=== PATIENT | female | born 1960 | race Two or more races ===

== ENCOUNTER 2020-02-28 04:57 | Emergency (ER) | payer SELFPAY ==
[2020-02-28] MEDS ORDERED: MECLIZINE HCL 25 MG TABLET PO ONE (08:26)
[2020-02-28] MEDS ORDERED: CEPHALEXIN 500 MG CAPSULE PO ONE (08:37)
[2020-02-28] MEDS ORDERED: DIPH/PERTUSS(ACELL)/TETANUS VAC/PF 0.5 ML SYR (>=10YO) IM ONE (08:37)
--- NOTE | 2020-02-28 08:37 | ER Document Report ---
ED Dizziness/Weakness - General Chief Complaint: Dizziness Stated Complaint: DIZZYNESS Time Seen by Provider: 02/28/20 08:25 Mode of Arrival: Ambulatory Information source: Patient Notes: 02/28/20 05:25 - ED Nursing Note by LITZY RODARTE Num: [id number] : 1960 Patient Age: 59 pt has had dizziness for 2 days. pt had vertigo many yrs ago and she feels the same way. states she now is getting dizzy even when she walks. Initialized on 02/28/20 05:25 - END OF NOTE MY NOTES 59-year-old female arrives with her with chief complaint of mild cough for the last month or 2 status post COVID-19 asymptomatic otherwise. She tested positive late October. Patient has had for last 2 days spinning when she moves her head to the side or up and down. She also reports she has had some rhinorrhea and nasal congestion. She denies any nuchal rigidity fever chills . She denies any skin lesions or taste sensations. She did advise she got bitten accidentally by her on her right pinky finger radial side. She hope she can get a tetanus shot for this. Patient reports she had vertigo labyrinthitis over 20 years ago and was treated with meclizine and Phenergan. She denies any prior history of strokes or NM. - Related Data Allergies/Adverse Reactions: codeine Allergy (Verified 02/28/20 06:01) Home Medications: zinc, vitamin D, Past Medical History - General Information source: Patient - Social History Smoking Status: Never Smoker Cigarette use (# per day): No Chew tobacco use (# tins/day): No Smoking Education Provided: No Frequency of alcohol use: None Drug Abuse: None Lives with: Family Family History: Reviewed & Not Pertinent Patient has suicidal ideation: No Patient has homicidal ideation: No Review of Systems - Review of Systems Constitutional: See HPI, Recent illness EENT: See HPI, Nose congestion, Nose discharge Cardiovascular: No symptoms reported Respiratory: No symptoms reported Gastrointestinal: See HPI, Nausea Genitourinary: No symptoms reported Female Genitourinary: No symptoms reported Musculoskeletal: No symptoms reported Skin: See HPI, Other - Healing bite human on radial side of PIP of fifth phalange right sided hand Hematologic/Lymphatic: No symptoms reported Neurological/Psychological: See HPI, Other - Dizziness with nausea -: Yes All other systems reviewed and negative Physical Exam - Vital signs Vitals: Temp Pulse Resp BP Pulse Ox 98.0 F 73 20 137/77 H 97 02/28/20 05:04 02/28/20 05:04 02/28/20 05:04 02/28/20 05:04 02/28/20 05:04 Interpretation: Normal - General General appearance: Appears well, Alert - HEENT Head: Normocephalic, Atraumatic Eyes: Normal Pupils: PERRL - Respiratory Respiratory status: No respiratory distress Chest status: Nontender Breath sounds: Normal Chest palpation: Normal - Cardiovascular Rhythm: Regular Heart sounds: Normal auscultation Murmur: No - Abdominal Inspection: Normal Distension: No distension Bowel sounds: Normal Tenderness: Nontender Organomegaly: No organomegaly - Back Back: Normal, Nontender - Extremities General upper extremity: Normal inspection, Nontender, Normal color, Normal ROM, Normal temperature General lower extremity: Normal inspection, Nontender, Normal color, Normal ROM, Normal temperature, Normal weight bearing. No: Ravi's sign - Neurological Neuro grossly intact: Yes Cognition: Normal Orientation: AAOx4 Yohannes Coma Scale Eye Opening: Spontaneous Yohannes Coma Scale Verbal: Oriented Yohannes Coma Scale Motor: Obeys Commands Lohman Coma Scale Total: 15 Speech: Normal Motor strength normal: LUE, RUE, LLE, RLE Sensory: Normal Notes: Positive for Baraney test - Psychological Associated symptoms: Normal affect, Normal mood - Skin Skin Temperature: Warm Skin Moisture: Dry Skin Color: Normal Course - Vital Signs Vital signs: Temp Pulse Resp BP Pulse Ox 98.0 F 73 20 137/77 H 97 02/28/20 05:04 02/28/20 09:21 02/28/20 09:21 02/28/20 09:21 02/28/20 09:21 - Laboratory Results Result Diagrams: 02/28/20 08:41 02/28/20 08:41 Laboratory Results Interpreted: 02/28/20 08:41 Hct 35.1 L Critical Laboratory Results Reviewed: Yes Attending or Supervising Physician who Reviewed Labs: PARESH LESTER JR - Radiology Results Critical Radiology Results Reviewed: Yes Attending or Supervising Physician who Reviewed Radiology: PARESH LESTER JR Discharge - Discharge Clinical Impression: Vertigo Condition: Stable Disposition: HOME, SELF-CARE Instructions: Meclizine ([facility]), Antinausea Medication ([facility]) Additional Instructions: Follow-up with personal doctor this week return to ER as needed take medicines as directed encourage fluids. Take your meclizine for dizziness and Phenergan for nausea and Keflex for your bite and sinuses Prescriptions: Meclizine HCl [Antivert 25 mg Tablet] 25 mg PO TID PRN #21 tablet PRN Reason: Cephalexin Monohydrate [Keflex 500 mg Capsule] 500 mg PO TID 10 Days #30 capsule Promethazine HCl [Phenergan 25 mg Tablet] 1 - 2 tab PO Q6H PRN #15 tablet PRN Reason:
[2020-02-28] MEDS ORDERED: PROMETHAZINE HCL 25 MG TABLET PO ONE (08:42)
--- NOTE | 2020-02-28 08:49 | RADIOLOGY REPORT (SQ) ---
EXAM DESCRIPTION: CHEST SINGLE VIEW IMAGES COMPLETED DATE/TIME: 02/28/2020 8:37 am REASON FOR STUDY: dizzy COMPARISON: None. EXAM PARAMETERS: NUMBER OF VIEWS: One view. TECHNIQUE: Single frontal radiographic view of the chest acquired. RADIATION DOSE: NA LIMITATIONS: None. FINDINGS: LUNGS AND PLEURA: No opacities, masses or pneumothorax. No pleural effusion. MEDIASTINUM AND HILAR STRUCTURES: No masses. Contour normal. HEART AND VASCULAR STRUCTURES: Heart normal in size. Normal vasculature. BONES: No acute findings. HARDWARE: None in the chest. OTHER: No other significant finding. IMPRESSION: NO ACUTE RADIOGRAPHIC FINDING IN THE CHEST. TECHNICAL DOCUMENTATION: JOB ID: [id number] 2010 [employer]- All Rights Reserved Reading location - IP/workstation name: [email or web address]
[2020-02-28 09:14] LABS: ABSOLUTE BASOPHILS # (AUTO) 0.1 10^3/uL (0.0-0.2); ABSOLUTE EOSINOPHILS # (AUTO) 0.1 10^3/uL (0.0-0.6); ABSOLUTE LYMPHOCYTES (AUTO) 1.6 10^3/uL (0.5-4.7); ABSOLUTE MONOCYTES (AUTO) 0.5 10^3/uL (0.1-1.4); ABSOLUTE NEUT (AUTO) 3.9 10^3/uL (1.7-8.2); EOSINOPHILS % (AUTO) 1.9 % (0-6); HEMATOCRIT 35.1 % (36.0-47.0); HEMOGLOBIN 12.1 g/dL (12.0-15.5); LYMPHOCYTES % (AUTO) 25.5 % (13-45); MEAN CORPUSCULAR HEMOGLOBIN 30.2 pg (27.0-33.4); MEAN CORPUSCULAR HGB CONC 34.4 g/dL (32.0-36.0); MEAN CORPUSCULAR VOLUME 88 fl (80-97); MONOCYTES % (AUTO) 7.4 % (3-13); PLATELET COUNT 361 10^3/uL (150-450); RED BLOOD COUNT 3.99 10^6/uL (3.72-5.28); RED CELL DISTRIBUTION WIDTH 13.5 % (11.5-14.0); SEGMENTED NEUTROPHILS % (AUTO) 64.2 % (42-78); TOTAL CELLS COUNTED % (AUTO) 100 %; WHITE BLOOD COUNT 6.1 10^3/uL (4.0-10.5)
[2020-02-28 09:27] LABS: ALBUMIN 4.2 g/dL (3.5-5.0); ALKALINE PHOSPHATASE 113 U/L (38-126); ANION GAP 10 (5-19); ASPARTATE AMINO TRANSFERASE 26 U/L (14-36); BILIRUBIN,DIRECT 0.1 mg/dL (0.0-0.4); BILIRUBIN,TOTAL 0.6 mg/dL (0.2-1.3); BLOOD UREA NITROGEN 9 mg/dL (7-20); CALCIUM 9.7 mg/dL (8.4-10.2); CARBON DIOXIDE 27 mmol/L (22-30); CHLORIDE 105 mmol/L (98-107); GLUCOSE 98 mg/dL (75-110); POTASSIUM 4.1 mmol/L (3.6-5.0); TOTAL PROTEIN 8.1 g/dL (6.3-8.2)
--- NOTE | 2020-02-28 10:11 | RADIOLOGY REPORT (SQ) ---
EXAM DESCRIPTION: CT HEAD WITHOUT IMAGES COMPLETED DATE/TIME: 02/28/2020 10:02 am REASON FOR STUDY: dizzy COMPARISON: None. TECHNIQUE: Axial images acquired through the brain without intravenous contrast. Images reviewed wi th bone, brain and subdural windows. Images stored on PACS. All CT scanners at this facility use dose modulation, iterative reconstruction, and/or weight based d osing when appropriate to reduce radiation dose to as low as reasonably achievable (ALARA). [facility]: Dose Right [facility]: CareDose [facility]: Dose Right [facility]: Teradose 4D [facility]: Smart RealD RADIATION DOSE: CT Rad equipment meets quality standard of care and radiation dose reduction techniq ues were employed. CTDIvol: 53.2 mGy. DLP: 1070 mGy-cm. mGy. LIMITATIONS: None. FINDINGS: VENTRICLES: Normal size and contour. CEREBRUM: No masses. No hemorrhage. No midline shift. No evidence for acute infarction. Normal gra y/white matter differentiation. No areas of low density in the white matter. CEREBELLUM: No masses. No hemorrhage. No alteration of density. No evidence for acute infarction. EXTRAAXIAL SPACES: No fluid collections. No masses. ORBITS AND GLOBE: No intra- or extraconal masses. Normal contour of globe without masses. CALVARIUM: No fracture. PARANASAL SINUSES: No fluid or mucosal thickening. SOFT TISSUES: No mass or hematoma. OTHER: No other significant finding. IMPRESSION: NORMAL BRAIN CT WITHOUT CONTRAST. EVIDENCE OF ACUTE STROKE: NO. COMMENT: Quality ID # [id number]: Final reports with documentation of one or more dose reduction techniques (e.g., Automated exposure control, adjustment of the mA and/or kV according to patient size, use of iterative reconstruction technique) TECHNICAL DOCUMENTATION: JOB ID: [id number] [employer]- All Rights Reserved Reading location - IP/workstation name: [email or web address]
[2020-02-28 10:27] LABS: APPEARANCE,URINE CLEAR; BILIRUBIN,URINE NEGATIVE (NEGATIVE); COLOR,URINE STRAW; GLUCOSE, URINE NEGATIVE (NEGATIVE); KETONES,URINE NEGATIVE (NEGATIVE); LEUKOCYTE ESTERASE,URINE NEGATIVE (NEGATIVE); NITRITE,URINE NEGATIVE (NEGATIVE); PROTEIN,URINE NEGATIVE (NEGATIVE); URINE SPECIFIC GRAVITY 1.006; UROBILINOGEN,URINE NEGATIVE mg/dL (<2.0)
[2020-02-28 11:02] VITALS: BP 131/77
== END 2020-02-28 11:11 | disposition home or self-care (01) ==
LOC: ER 04:57
DX: R42 Dizziness and giddiness (principal); R09.81 Nasal congestion; R05 Cough; R11.0 Nausea; Z88.6 Allergy status to analgesic agent
CPT/HCPCS: 36415; 70450; 71045; 80053; 81001; 84484; 85025; 90471; 90715; 99285